=== PATIENT | male | born 1985 | race African-American/Black ===

== ENCOUNTER 2017-08-23 21:51 | Emergency (ER) | payer MEDICARE, OTHER ==
[~2017-08-23 21:51] MED LIST: BENZ1TAB PO; DEPA500T PO; FLUP10 PO; PROLIXIN DECONATE IM; SERO200T PO
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
[2017-08-23 22:19] VITALS: BP 129/88; PULSE 70; RESP 18; TEMP 97.1; O2SAT 100
[2017-08-23 22:24] LABS: AUTOMATED NEUTROPHIL # 3.8 TH/MM3 (1.8-7.7); BASOPHIL # 0.1 TH/MM3 (0-0.2); BASOPHIL % 0.7 % (0.0-2.0); EOSINOPHIL # 0.3 TH/MM3 (0-0.4); EOSINOPHIL % 3.1 % (0.0-4.0); HEMATOCRIT 41.3 % (39.0-51.0); HEMOGLOBIN 14.3 GM/DL (13.0-17.0); LYMPH % 43.2 % (9.0-44.0); LYMPHOCYTE # 3.6 TH/MM3 (1.0-4.8); MEAN CELL VOLUME 88.9 FL (80.0-100.0); MEAN CORPUSCULAR HEMOGLOBIN 30.7 PG (27.0-34.0); MEAN CORPUSCULAR HGB CONC 34.6 % (32.0-36.0); MONO % 7.3 % (0.0-8.0); MONOCYTE # 0.6 TH/MM3 (0-0.9); NEUT % 45.7 % (16.0-70.0); PLATELET COUNT 277 TH/MM3 (150-450); RED BLOOD COUNT 4.64 MIL/MM3 (4.50-5.90); RED CELL DISTRIBUTION WIDTH 15.6 % (11.6-17.2); WHITE BLOOD COUNT 8.2 TH/MM3 (4.0-11.0)
[2017-08-23 23:34] LABS: ALBUMIN 4.2 GM/DL (3.4-5.0); ALT (GPT) 25 U/L (12-78); AST (GOT) 30 U/L (15-37); BICARBONATE 26.9 MEQ/L (21.0-32.0); BLOOD UREA NITROGEN 8 MG/DL (7-18); CALCIUM 8.8 MG/DL (8.5-10.1); CHLORIDE 103 MEQ/L (98-107); CREATININE 0.89 MG/DL (0.60-1.30); GLOMERULAR FILTRATION RATE 119 ML/MIN (>89); GLUCOSE,RANDOM 72 MG/DL (74-106); SODIUM (NA) 141 MEQ/L (136-145)
[2017-08-23 23:44] LABS: ALKALINE PHOSPHATASE 54 U/L (45-117); TOTAL BILIRUBIN ADULT 0.9 MG/DL (0.2-1.0); TOTAL PROTEIN 7.6 GM/DL (6.4-8.2)
[2017-08-24] MEDS ORDERED: POTASSIUM CHLORIDE 20 MEQ CONTROLLED RELEASE TAB PO ONE (01:45)
[2017-08-24 02:00] VITALS: BP 109/57; PULSE 64; RESP 17; O2SAT 96
[2017-08-24 06:30] VITALS: BP 133/72; PULSE 62; RESP 16; O2SAT 100
--- NOTE | 2017-08-24 09:20 | PD ---
Physical Exam Date Seen by Provider: Aug 24, 2017 Time Seen by Provider: 09:15 Narrative For full history and physical examination please see previous notes. Data Data Last Documented VS Vital Signs Date Time Temp Pulse Resp B/P (MAP) Pulse Ox O2 Delivery O2 Flow Rate FiO2 08/24/17 06:30 62 16 133/72 (92) 100 Room Air 08/23/17 22:19 97.1 Orders Orders Complete Blood Count With Diff (08/23/17 22:11) Comprehensive Metabolic Panel (08/23/17 22:11) Thyroid Stimulating Hormone (08/23/17 22:11) Psych Screen (08/23/17 22:11) Drug Screen, Random Urine (08/23/17 22:11) Alcohol (Ethanol) (08/23/17 22:11) Potassium Chloride (Kcl) (08/24/17 01:45) Diet Regular Basic (08/24/17 Breakfast) Ed Discharge Order (08/24/17 09:14) Labs Laboratory Tests Test 08/23/17 22:10 White Blood Count 8.2 TH/MM3 Red Blood Count 4.64 MIL/MM3 Hemoglobin 14.3 GM/DL Hematocrit 41.3 % Mean Corpuscular Volume 88.9 FL Mean Corpuscular Hemoglobin 30.7 PG Mean Corpuscular Hemoglobin Concent 34.6 % Red Cell Distribution Width 15.6 % Platelet Count 277 TH/MM3 Mean Platelet Volume 8.0 FL Neutrophils (%) (Auto) 45.7 % Lymphocytes (%) (Auto) 43.2 % Monocytes (%) (Auto) 7.3 % Eosinophils (%) (Auto) 3.1 % Basophils (%) (Auto) 0.7 % Neutrophils # (Auto) 3.8 TH/MM3 Lymphocytes # (Auto) 3.6 TH/MM3 Monocytes # (Auto) 0.6 TH/MM3 Eosinophils # (Auto) 0.3 TH/MM3 Basophils # (Auto) 0.1 TH/MM3 CBC Comment DIFF FINAL Differential Comment Blood Urea Nitrogen 8 MG/DL Creatinine 0.89 MG/DL Random Glucose 72 MG/DL Total Protein 7.6 GM/DL Albumin 4.2 GM/DL Calcium Level 8.8 MG/DL Alkaline Phosphatase 54 U/L Aspartate Amino Transf (AST/SGOT) 30 U/L Alanine Aminotransferase (ALT/SGPT) 25 U/L Total Bilirubin 0.9 MG/DL Sodium Level 141 MEQ/L Potassium Level 3.0 MEQ/L Chloride Level 103 MEQ/L Carbon Dioxide Level 26.9 MEQ/L Anion Gap 11 MEQ/L Estimat Glomerular Filtration Rate 119 ML/MIN Thyroid Stimulating Hormone 3rd Gen 0.608 uIU/ML Urine Opiates Screen NEG Urine Barbiturates Screen NEG Urine Amphetamines Screen POS Urine Benzodiazepines Screen NEG Urine Cocaine Screen NEG Urine Cannabinoids Screen POS Ethyl Alcohol Level LESS THAN 3 MG/DL MDM Medical Record Reviewed: Yes Supervised Visit with CHRISTIE: No Narrative Course Patient is 32-year-old male that presented to emerge department under Hoang act for psychiatric evaluation. Patient was seen and evaluated, medically cleared. He was then evaluated by psychiatry. Patient's Hoang act was lifted. Patient will be discharged home with a diagnosis of amphetamine abuse. Diagnosis Primary Impression: Polysubstance abuse Referrals: [facility] Patient Instructions: General Instructions, Polysubstance Abuse (ED) Additional Instruction: Avoid use of illicit drugs Follow-up with [facility] Follow-up at the [facility] Return to emergency department for any new worsening symptoms Med/Other Pt SpecificInfo: No Change to Meds Scripts No Active Prescriptions or Reported Meds Disposition: 01 DISCHARGE HOME Condition: Stable Rena Shelby Aug 24, 2017 09:20
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
== END 2017-08-24 09:23 | disposition home or self-care (01) ==
LOC: NEPJ 21:51
DX: F15.10 Other stimulant abuse, uncomplicated (principal); F60.2 Antisocial personality disorder; F12.90 Cannabis use, unspecified, uncomplicated; W26.0XXA Contact with knife, initial encounter; Z59.0 Homelessness; F25.9 Schizoaffective disorder, unspecified; F31.9 Bipolar disorder, unspecified; F43.10 Post-traumatic stress disorder, unspecified; I10 Essential (primary) hypertension; Z72.0 Tobacco use; Z88.6 Allergy status to analgesic agent
CPT/HCPCS: 80053; 80307; 84443; 85025; 99284

== ENCOUNTER 2017-08-24 09:35 | Inpatient (IN) | payer MEDICARE, MEDICAID ==
[~2017-08-24] VITALS: Ht 180.3 cm; Wt 70.5 kg
[2017-08-24] MEDS ORDERED: HALOPERIDOL LACTATE 5 MG/ML AMP IM STA (09:51)
[2017-08-24] MEDS ORDERED: LORazepam 1 MG TAB PO PRN (10:00)
[2017-08-24] MEDS ORDERED: LORazepam 2 MG/ML VIAL IM PRN ×2 (10:00)
[2017-08-24] MEDS ORDERED: ALUMINUM/MAGNESIUM/SIMETH 30 ML CUP PO PRN (10:00)
[2017-08-24] MEDS ORDERED: ACETAMINOPHEN 325 MG TAB PO PRN (10:00)
[2017-08-24] MEDS ORDERED: MAGNESIUM HYDROXIDE SUSP 30 ML CUP PO PRN (10:00)
[2017-08-24] MEDS ORDERED: LORazepam 0.5 MG TAB PO PRN (10:00)
[2017-08-24 10:15] VITALS: BP 108/66; PULSE 61; RESP 18; TEMP 98.1; O2SAT 98
[2017-08-24] MEDS: NICOTINE 21 MG/24 HR PATCH T-DERMAL SCH (12:00)
[2017-08-24] MEDS ORDERED: diphenhydrAMINE HCL 50 MG CAP PO PRN (15:00)
[2017-08-24] MEDS ORDERED: hydrOXYzine HCL 50 MG TAB PO PRN (15:00)
--- NOTE | 2017-08-24 16:57 | HHI.HP ---
Provisional Diagnosis Admission Date Aug 24, 2017 at 09:53 [place] I. 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 Cluster B traits present, r/o antisocial personality disorder [place] III. No significant medical he Certification of Person's Competence To Provide Express and Informed Consent I have personally examined iYfan Patton , a person being served at [facility] on, Aug 24, 2017 16:39. Express and informed consent means consent voluntarily given in writing, by a competent person, after sufficient explanation and disclosure of the subject matter involved to enable the person to make a knowing and willful decision without any element of force, fraud, deceit, duress, or other form of constraint or coercion. This person is 18 years of age or older, is not now known to be incompetent to consent to treatment with a guardian advocate, and does not have a health care surrogate or proxy currently making medical treatment decisions. I have found this person to be one of the following: [] Competent to provide express and informed consent, as defined above, for voluntary admission to this facility and is competent to provide express and informed consent for treatment. He/she has the consistent capacity to make well reasoned, willful, and knowing decisions concerning his or her medical or mental health treatment. The person fully and consistently understands the purpose of the admission for examination/placement and is fully capable of personally exercising all rights assured under [place] Incompetent to provide express and informed consent to voluntary admission, and this is incompetent to provide express and informed consent to treatment. The person must be transferred to involuntary status and a petition for a guardian advocate filed with the Circuit Court. [x] Refusing to provide express and informed consent to voluntary admission but is competent to provide express and informed consent for treatment. The person must be discharged or transferred to involuntary status. Form shall be completed within 24 hours of a person's arrival at the receiving facility and filed in the clinical record of each person: 1. Admitted on a voluntary basis 2. Permitted to provide express and informed consent to his/her own treatment 3. Allowed to transfer from involuntary to voluntary status 4. Prior to permitting a person to consent to his or her own treatment after having been previously found incompetent to consent to treatment. History of Present Illness Capacity: Has Capacity HPI The patient is 32-year-old -[place]aj[place] man, unemployed, single, homeless, with self reported to History of schizophrenia, PTSD and anxiety, documented history of polysubstance dependence, including amphetamines, cocaine and cannabis use disorder, previous psychiatric hospitalizations, suicide attempts, extensive history of self cutting behavior, no significant medical history, who presents emergency department under [place] act by PD. Patient had contacted police advising them that his anxiety was causing him to have suicidal thoughts. He advised he had PTSD and suffers constantly. He also stated that he has prescribed medications and has not been taking them accordingly. He informed that he was going to find something sharp and began slicing his wrist. The patient did not attempt to harm himself in any way. He he was monitored in J pod overnight and presented no behavioral concerns. Electronic medical reviewed. One previous admission to our inpatient psychiatric unit in 2012. At that time the patient was diagnosed with schizoaffective disorder. Current toxicology is positive for amphetamines and cannabis. The patient was initially seen by Ms. Alycia Simms in the J-pod: "the patient is seen with Kwesi tech present during visit. The patient was asleep but awakens with verbal prompting. He is alert and oriented. His speech is his speech is clear and logical although he is vague in his answers. He states that he came to the hospital because he was feeling anxious and had been feeling suicidal. When asked regarding stressors he "states lots of things". When asked about suicidality the patient states "I was thinking of cutting myself and I have a history of cutting in the past". The patient does not present any evidence of any psychosis, no douglas or hypomania. No current suicidal or homicidal ideation. Patient reports he has been diagnosed with PTSD and that "it stems from a lot of different things ". He is vague regarding his symptoms and only alluded to "having negative memories about certain things". States that he moved back to [place] from the [facility] 3 weeks ago and had been staying with some friends as well as stain and several motels. Strong antisocial personality traits are evident in his style of relating to this interviewer." Once the patient was discharged by Ms. Simms, he change his clothes in the lund , leaving the pajamas in the floor. Then he took his back bag went to the door of the Pod, took a knife out of the bag and caught himself in his wrist very superficially posting that he wanted to kill himself. The patient was immediately manually restrained by techs. Security arrived to the [facility] patient was readmitted in psychiatry. I saw the patient for about 5 minutes, he was making several suicidal allegations, voicing profanities, stating that he needs to be admitted. Once the patient was admitted in the psychiatric unit, he arrived with the takes his first question was "A what time they serve the food here". Patient sat down in the recreational area and minutes later he was very seductive and sexually inappropriate with psychotic female patient that had actually to be from him and sent to another unit. Review of Systems Constitutional: DENIES: Diaphoretic episodes, Fatigue, Fever, Weight gain, Weight loss, Chills, Dizziness, Change in appetite, Night Sweats Endocrine: DENIES: Heat/cold intolerance, Polydipsia, Polyuria, Polyphagia Eyes: DENIES: Blurred vision, Diplopia, Eye inflammation, Eye pain, Vision loss , Photosensitivity, Double Vision Ears, nose, mouth, throat: DENIES: Tinnitus, Hearing loss, Vertigo, Nasal discharge, Oral lesions, Throat pain, Hoarseness, Ear Pain, Running Nose, Epistaxis, Sinus Pain, Toothache, Odynophagia Respiratory: DENIES: Apneas, Cough, Snoring, Wheezing, Hemoptysis, Sputum production, Shortness of breath Cardiovascular: DENIES: Chest pain, Palpitations, Syncope, Dyspnea on Exertion , PND, Lower Extremity Edema, Orthopnea, Claudication Gastrointestinal: DENIES: Abdominal pain, Black stools, Bloody stools, Constipation, Diarrhea, Nausea, Vomiting, Difficulty Swallowing, Anorexia Genitourinary: DENIES: Sexual dysfunction, Urinary frequency, Urinary incontinence, Urgency, Hematuria, Dysuria, Nocturia, Penile Discharge, Testicular Pain, Testicular Swelling Musculoskeletal: DENIES: Joint pain, Muscle aches, Stiffness, Joint Swelling, Back pain, Neck pain Integumentary: DENIES: Abnormal pigmentation, Nail changes, Pruritus, Rash Hematologic/lymphatic: DENIES: Bruising, Lymphadenopathy Immunologic/allergic: DENIES: Eczema, Urticaria Neurologic: DENIES: Abnormal gait, Headache, Localized weakness, Paresthesias, Seizures, Speech Problems, Tremor, Poor Balance Psychiatric: DENIES: Anxiety, Confusion, Mood changes, Depression, Hallucinations, Agitation, Suicidal Ideation, Homicidal Ideation, Delusions Substance Abuse History Drugs/Alcohol past 12 months Cannabis, amphetamines, cocaine Past Family Social History Coded Allergies: ibuprofen (Unverified Adverse Reaction, Intermediate, 10/25/16) VOMITING CONSTANT Discontinued Reported Medications [prolixin deconate] No Conflict Check, 25 MG IM q 21 days 01/06/13 Fluphenazine Hcl (Prolixin 10 Mg Tab) 10 Mg Tab, 10 MG PO BID, TAB 01/06/13 Benztropine Mesylate (Benztropine Mesylate) 1 Mg Tab, 1 MG PO BID, TAB 01/06/13 Quetiapine Fumarate 200 mg (Seroquel 200 mg) 200 Mg Tab, 200 MG PO HS, TAB 12/26/12 Divalproex Sodium 500 mg (Depakote 500 mg) 500 Mg Tab, 500 MG PO BID, TAB 12/14/12 Current Medications Medications (Trade) Dose Ordered Sig/Thiago Route Start Time Stop Time Status Last Admin (Ativan) 1 mg Q6H PRN PO 08/24/17 10:00 Future hold (Ativan Inj) 1 mg Q6H PRN IM 08/24/17 10:00 Future hold (Tylenol) 650 mg Q4H PRN PO 08/24/17 10:00 (Milk Of Magnesia Liq) 30 ml DAILY PRN PO 08/24/17 10:00 (Mag-Al Plus Susp Liq) 30 ml Q6H PRN PO 08/24/17 10:00 (Habitrol 21 Mg Patch.24 Hr) 1 patch DAILY T-DERMAL 08/24/17 12:00 (Benadryl) 50 mg HS PRN PO 08/24/17 15:00 Future Hold (Atarax) 50 mg Q6H PRN PO 08/24/17 15:00 Future hold Family Psych History No family psychiatric history Social History The patient is homeless, single, unemployed Patient's Strengths (min. 2) Verbal communication Physical Exam No EPS, no withdrawal symptoms, no psychomotor agitation or retardation Vital Signs Vital Signs Date Time Temp Pulse Resp B/P (MAP) Pulse Ox O2 Delivery O2 Flow Rate FiO2 08/24/17 10:15 98.1 61 18 108/66 (80) 98 Mental Status Examination Appearance: Appropriate Consciousness: Alert Orientation: x4 Motor Activity: Normal gait Speech: Unremarkable Language: Adequate Fund of Knowledge: Adequate Attention and Concentration: Adequate Memory: Unremarkable Mood: Appropriate Affect: Appropriate Thought Process & Associations: Intact Thought Content: Appropriate Hallucination Type: None Delusion Type: None Suicidal Ideation: No Suicidal Plan: No Suicidal Intention: No Homicidal Ideation: No Homicidal Plan: No Homicidal Intention: No Insight: Poor Judgment: Poor Assessment & Plan Problem List: (1) Antisocial personality disorder ICD Codes: F60.2 - Antisocial personality disorder Status: Acute Assessment & Plan: The patient is a 32-year-old -[place] man, who is homeless, single, unemployed, with self-reported psychiatric history of PTSD, anxiety, schizophrenia, a documented history of polysubstance dependence including amphetamines, cocaine, cannabis, previous psychiatric admissions, poor impulse control, history of self cutting behavior, strong cluster B traits , who walked initially voluntarily to the ER complaining of anxiety, positive for amphetamines and cannabis in his toxicology, and requesting to be medicated with benzodiazepines. Once he was discharged without any prescription, the patient made a suicidal gesture in the ER, he took his knife from inside his back and self-inflicted a very superficial laceration I make several suicidal statements. I decided to admit the patient in the psychiatric unit for longitudinal observation of mood and behavior, possible collateral information, and for safety, but is very possible that his current presentation and given his suicidal gesture is secondary to antisocial personality disorder and conscious simulation with secondary gain of use in the hospital as a source of narcotics and also as a fdc. I am not starting any psychotropic in the patient at this moment. The patient will be placed in 2700. Assessment & Plan Estimated LOS: Mario Webber MD Aug 24, 2017 16:57
[2017-08-25 06:39] VITALS: BP 119/56; PULSE 73; RESP 16; TEMP 97.8; O2SAT 98
[2017-08-25] MEDS: NICOTINE 21 MG/24 HR PATCH T-DERMAL SCH (09:00)
--- NOTE | 2017-08-25 15:23 | HHI.DS ---
Psychiatry Discharge Summary Inpatient Psychiatric care?: Yes Advance Directive: No Reason Not Provided: DON'T HAVE ONE Mental Health AdvanceDirective: No Health Care Proxy: No Admission Admission Date Aug 24, 2017 at 09:53 Admission Diagnosis: (1) Antisocial personality disorder ICD Code: F60.2 - Antisocial personality disorder Brief History The patient is 32-year-old -[place] man, unemployed, single, homeless, with self reported to History of schizophrenia, PTSD and anxiety, documented history of polysubstance dependence, including amphetamines, cocaine and cannabis use disorder, previous psychiatric hospitalizations, suicide attempts, extensive history of self cutting behavior, no significant medical history, who presents emergency department under [place] act by PD. Patient had contacted police advising them that his anxiety was causing him to have suicidal thoughts. He advised he had PTSD and suffers constantly. He also stated that he has prescribed medications and has not been taking them accordingly. He informed that he was going to find something sharp and began slicing his wrist. The patient did not attempt to harm himself in any way. He he was monitored in J pod overnight and presented no behavioral concerns. Electronic medical reviewed. One previous admission to our inpatient psychiatric unit in 2012. At that time the patient was diagnosed with schizoaffective disorder. Current toxicology is positive for amphetamines and cannabis. The patient was initially seen by Ms. Alycia Simms in the J-pod: "the patient is seen with Kwesi reddy present during visit. The patient was asleep but awakens with verbal prompting. He is alert and oriented. His speech is his speech is clear and logical although he is vague in his answers. He states that he came to the hospital because he was feeling anxious and had been feeling suicidal. When asked regarding stressors he "states lots of things". When asked about suicidality the patient states "I was thinking of cutting myself and I have a history of cutting in the past". The patient does not present any evidence of any psychosis, no douglas or hypomania. No current suicidal or homicidal ideation. Patient reports he has been diagnosed with PTSD and that "it stems from a lot of different things ". He is vague regarding his symptoms and only alluded to "having negative memories about certain things". States that he moved back to [place] from the [facility] 3 weeks ago and had been staying with some friends as well as stain and several motels. Strong antisocial personality traits are evident in his style of relating to this interviewer." Once the patient was discharged by Ms. Simms, he change his clothes in the lund , leaving the pajamas in the floor. Then he took his back bag went to the door of the Pod, took a knife out of the bag and caught himself in his wrist very superficially posting that he wanted to kill himself. The patient was immediately manually restrained by techs. Security arrived to the [facility] patient was readmitted in psychiatry. I saw the patient for about 5 minutes, he was making several suicidal allegations, voicing profanities, stating that he needs to be admitted. Once the patient was admitted in the psychiatric unit, he arrived with the takes his first question was "A what time they serve the food here". Patient sat down in the recreational area and minutes later he was very seductive and sexually inappropriate with psychotic female patient that had actually to be from him and sent to another unit. Tobacco Use In Past 30 Days: Cigars and/or Pipe Daily Alcohol Use: Monthly or Less Hospital Course The patient was admitted in 2699 after an episode in which the patient cut himself very superficially in his right hand after being discharged from [facility]. Initially the patient came voluntarily complaining of anxiety, having bad memories from the past, in the context of positive for amphetamine and cannabis. The patient was requesting to be admitted in psychiatry to start psychotropics. He was recommended to continue outpatient care as an outpatient and to go to [facility] for rehabilitation, but in his way out of the [facility] he threw his pajamas in the floor and he took a knife from inside his bag and caught himself. Once the patient was admitted in psychiatry he exceeded a quite interesting antisocial behavior in the unit. Since the beginning he was entitle requesting double portions of food asking if he could be placed in a more quiet environment where he cannot sleep. He became quite close of a female patient "with significant mental limitations" became quite sexually inappropriate with her to the point that the patient had to be transferred to another unit. During his stay in the unit the patient did not show any psychotic behavior, he was no agitated or aggressive, but he did not show any symptomatology of depression or suicidality. Today when I see him for reevaluation along with counselor Abbe, the patient is found deeply slept and snoring very loud. He was easily arousable. The patient reports that he feels much better today. He says that he needs to start his medications, he says that the medication that is good for him his Klonopin. The patient reports that he is doing much better and would like to be discharged by"Sunday morning" at this moment he denies suicidal and homicidal ideation, visual and auditory hallucinations. I have explained to the patient that at this time based on my observations, longitudinal evaluation, and discussion with staff, he does not benefit of inpatient psychiatric admission. He will be discharge with appointment to [facility]. At the beginning he does agree with this plan requesting again to be held in the unit until Sunday, but we firmly suggested that there is no more benefit of inpatient admission and he finally agreed. Results Blood Pressure 119 / 56 Vital Signs Date Time Temp Pulse Resp B/P (MAP) Pulse Ox O2 Delivery O2 Flow Rate FiO2 08/25/17 06:39 97.8 73 16 119/56 (77) 98 None Summary of Procedures none Pending results at discharge: No Medications # of Antipsychotic meds at D/C: 0 Approp Antipsych med options 1 - Minimum of three failed multiple trials of monotherapy. 2 - Documented plan to taper to monotherapy due to previous use of multiple meds OR cross-taper in progress at D/C. 3 - Documentation of augmentation of Clozapine. 4 - Justification other than those listed in allowable values 1-3, document here : Discharge Discharge Date: Aug 25, 2017 Discharge Diagnosis: (1) Antisocial personality disorder ICD Code: F60.2 - Antisocial personality disorder Status: Acute Pt Condition on Discharge: Good Discharge Disposition: Discharge Home Discharge Instructions Diet Instructions: As Tolerated, No Restrictions Activities you can perform: Regular-No Restrictions Scheduled Appointment: Anup Styles Act Appointment Date: Aug 27, 2017 Appointment Time: 8a-3p Discharge Time > 30 minutes Mental Status Examination Appearance: Appropriate Consciousness: Alert Orientation: x4 Motor Activity: Normal gait Speech: Unremarkable Language: Adequate Fund of Knowledge: Adequate Attention and Concentration: Adequate Memory: Unremarkable Mood: Appropriate Affect: Appropriate Thought Process & Associations: Intact Thought Content: Appropriate Hallucination Type: None Delusion Type: None Suicidal Ideation: No Suicidal Plan: No Suicidal Intention: No Homicidal Ideation: No Homicidal Plan: No Homicidal Intention: No Insight: Poor Judgment: Poor Discharge/Advance Care Plan Health Problems: (1) Antisocial personality disorder Goals to promote your health * To prevent worsening of your condition and complications * To maintain your health at the optimal level Directions to meet your goals Take your medications as prescribed Follow your dietary instruction Follow activity as directed Keep your appointments as scheduled Take your immunizations and boosters as scheduled If your symptoms worsen call your PCP, if no PCP go to Urgent Care Center or Emergency Room For 02/10 questions related to your inpatient stay or results of tests pending at discharge, please contact Dr. Mario Collins at Smoking is Dangerous to Your Health. Avoid second hand smoking Mario Collins MD Aug 25, 2017 15:23
[2017-08-26] MEDS ORDERED: OFLO0.3D9 LEFT EAR (06:03)
== END 2017-08-25 10:40 | disposition home or self-care (01) | DRG 883 ==
LOC: NEPJ 09:35 → NEDA 09:53 → H270 10:35
PROVIDERS: ADMIT Psychiatry & Neurology Psychiatry; ATTEND Psychiatry & Neurology Psychiatry
DX: F60.2 Antisocial personality disorder (principal); R45.851 Suicidal ideations; F14.20 Cocaine dependence, uncomplicated; F15.20 Other stimulant dependence, uncomplicated; F43.25 Adjustment disorder with mixed disturbance of emotions and conduct; F43.10 Post-traumatic stress disorder, unspecified; F12.20 Cannabis dependence, uncomplicated; F25.9 Schizoaffective disorder, unspecified; Z59.0 Homelessness; Z91.14 Patient's other noncompliance with medication regimen; Z91.5 Personal history of self-harm

== ENCOUNTER 2017-08-26 05:52 | Emergency (ER) | payer MEDICARE, MEDICAID ==
[2017-08-26 05:56] VITALS: BP 104/61; PULSE 76; RESP 18; TEMP 98.1; O2SAT 96
[2017-08-26] MEDS ORDERED: OFLO0.3D9 LEFT EAR (06:03)
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
--- NOTE | 2017-08-26 07:16 | PD ---
Physical Exam Date Seen by Provider: Aug 26, 2017 Time Seen by Provider: 07:15 Data Data Last Documented VS Vital Signs Date Time Temp Pulse Resp B/P (MAP) Pulse Ox O2 Delivery O2 Flow Rate FiO2 08/26/17 05:56 98.1 76 18 104/61 (75) 96 Room Air Orders Orders Ct Brain W/O Iv Contrast(Rout) (08/26/17 ) Psych Screen (08/26/17 07:14) MDM Medical Record Reviewed: Yes Supervised Visit with CHRISTIE: No Differential Diagnosis Adjustment disorder versus anxiety versus bipolar versus depression versus dementia versus electrolyte disorder versus malingering versus mood disorder versus ODD versus psychosis versus PTSD versus schizophrenia versus schizoaffective disorder versus substance-induced mood disorder versus other Narrative Course 32-year-old male initially presented to the ED for evaluation of ear pain. He was evaluated and discharged by PATRICIA Orourke. Upon hearing news of discharge patient states he is suicidal. He states he will cut himself. I reviewed the patient's record. He was evaluated a few days ago with similar ideations. Apparently he did make a suicidal gesture at that time. Will have the psych screener see the patient and discharge depending on their impression. Patient was evaluated by the psych screener, deemed safe for discharge. He is instructed to follow-up with outpatient community resources. He is stable and discharged home. Diagnosis Primary Impression: Traumatic tympanic membrane perforation Patient Instructions: General Instructions Departure Forms: Tests/Procedures Additional Instruction: Avoid getting any water in left ear canal. Use the medication as prescribed. Follow-up with primary care physician in 2 weeks for recheck. Scripts Ofloxacin Otic Drops (Ofloxacin Otic Drops) 0.3 % Drops 10 DROP LEFT EAR DAILY for Infection for 10 Days, #1 BOTTLE 0 Refills Prov: Yifan Juarez MD 08/26/17 Disposition: 01 DISCHARGE HOME Condition: Stable Moon Purcell Aug 26, 2017 07:16
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
== END 2017-08-26 09:44 | disposition home or self-care (01) ==
LOC: NEPD 05:52
DX: S09.22XA Traumatic rupture of left ear drum, initial encounter (principal); Y04.0XXA Assault by unarmed brawl or fight, initial encounter; R45.851 Suicidal ideations; F31.9 Bipolar disorder, unspecified; F20.9 Schizophrenia, unspecified; F43.10 Post-traumatic stress disorder, unspecified; F41.9 Anxiety disorder, unspecified; I10 Essential (primary) hypertension; Z72.0 Tobacco use
CPT/HCPCS: 70450; 99283